=== PATIENT | male | born 1935 | race African-American/Black ===

== ENCOUNTER 2018-07-01 08:06 | Emergency (ER) | payer MEDICARE ==
[2018-07-01] MEDS ORDERED: Amlodipine 5 MG TAB ONE (08:56)
== END 2018-07-01 09:30 | disposition home or self-care (01) ==
LOC: MADERS 08:06
DX: I10 Essential (primary) hypertension (principal); Z76.0 Encounter for issue of repeat prescription; E11.9 Type 2 diabetes mellitus without complications; E78.5 Hyperlipidemia, unspecified
CPT/HCPCS: 99281

== ENCOUNTER 2018-08-24 09:44 | Emergency (ER) | payer MEDICARE ==
--- NOTE | 2018-08-24 10:38 | RAD ---
LEFT KNEE 4 VIEWS: HISTORY: Injury. FINDINGS: There is a left knee prosthesis. Components appear in adequate position and alignment. No loosening . No evidence of acute fracture. There is evidence of a joint effusion in the suprapatellar region. IMPRESSION: Left knee prosthesis. Evidence of joint effusion. No acute fracture identified. POS: [facility]
--- NOTE | 2018-08-24 11:03 | RAD ---
LEFT HAND 3 VIEWS: Date: 08/24/18 HISTORY: Injury. FINDINGS: There is a fracture involving the middle phalanx of the fourth digit. This fracture involves the prox imal and mid shaft with probable involvement of the articular surface at the PIP joint. Mild displace ment. There are mild degenerative changes at the MCP and IP joints. No other fracture identified. IMPRESSION: Fracture middle phalanx fourth finger. POS: [facility]
== END 2018-08-24 11:05 | disposition home or self-care (01) ==
LOC: MADERS 09:44
DX: S62.625A Displaced fracture of middle phalanx of left ring finger, initial encounter for closed fracture (principal); S43.401A Unspecified sprain of right shoulder joint, initial encounter; S80.02XA Contusion of left knee, initial encounter; E11.9 Type 2 diabetes mellitus without complications; I10 Essential (primary) hypertension; E78.5 Hyperlipidemia, unspecified; Z79.84 Long term (current) use of oral hypoglycemic drugs; Z79.899 Other long term (current) drug therapy; Y04.8XXA Assault by other bodily force, initial encounter

== ENCOUNTER 2018-08-31 20:51 | Emergency (ER) | payer MEDICARE | END 2018-08-31 22:53 | disposition left against medical advice (07) | LOC: MADERS 20:51 | DX: Z00.00 Encounter for general adult medical examination without abnormal findings (principal); E11.9 Type 2 diabetes mellitus without complications; E78.5 Hyperlipidemia, unspecified; I10 Essential (primary) hypertension; Z79.84 Long term (current) use of oral hypoglycemic drugs; Z79.899 Other long term (current) drug therapy | CPT/HCPCS: 99282 ==

== ENCOUNTER 2021-01-28 14:46 | Emergency (ER) | payer MEDICARE ==
[2021-01-28 15:20] LABS: Bacteria/HPF 3+ HPF (None Seen); Bilirubin Negative (Negative); Blood, Urine Trace (Negative); Clarity Slightly Cloudy (Clear); Glucose, Urine (Dipstick) Negative (Negative); Ketone, Urine Negative (Negative); Leukocyte Trace (Negative); Nitrite Positive (Negative); Protein, Urine (Dipstick) 100 mg/dL (Neg-Trace); RBC/HPF 0-3 HPF (0-3); Specific Gravity, Urine 1.025 (1.005-1.030); Squamous Epithelial 0-3 HPF (0-3); Urobilinogen 0.2 mg/dL (Less than 2); WBC/HPF Greater than 50 HPF (0-3); pH, Urine 5.5 (5.0-9.0)
[2021-01-28] MEDS ORDERED: Cephalexin 500 MG CAP ONE (15:41)
== END 2021-01-28 16:30 | disposition home or self-care (01) ==
LOC: MADERS 14:46
DX: N39.0 Urinary tract infection, site not specified (principal); R45.6 Violent behavior; K21.9 Gastro-esophageal reflux disease without esophagitis; E78.5 Hyperlipidemia, unspecified; M10.9 Gout, unspecified; E11.9 Type 2 diabetes mellitus without complications; F32.9 Major depressive disorder, single episode, unspecified; F41.9 Anxiety disorder, unspecified; Z79.899 Other long term (current) drug therapy
CPT/HCPCS: 81003; 81015; 87077; 87086; 87186; 99285

== ENCOUNTER 2021-02-24 14:49 | Outpatient (CLI) | payer MEDICARE ==
[2021-02-24 15:14] LABS: Bilirubin Negative (Negative); Blood, Urine Negative (Negative); Glucose, Urine (Dipstick) Negative (Negative); Ketone, Urine Negative (Negative); Leukocyte Small (Negative); Nitrite Negative (Negative); Protein, Urine (Dipstick) 30 mg/dL (Neg-Trace); Urobilinogen 0.2 mg/dL (Less than 2); pH, Urine 5.5 (5.0-9.0)
[2021-02-24 15:25] LABS: Bacteria/HPF 4+ HPF (None Seen); Clarity Hazy (Clear); RBC/HPF 0-3 HPF (0-3); Squamous Epithelial 0-3 HPF (0-3)
== END 2021-02-24 14:50 | disposition home or self-care (01) ==
LOC: MADLAB 14:49
DX: N40.0 Benign prostatic hyperplasia without lower urinary tract symptoms (principal); R41.82 Altered mental status, unspecified
CPT/HCPCS: 81001; 87077; 87086

== ENCOUNTER 2021-03-24 13:39 | Outpatient (CLI) | payer MEDICARE | END 2021-03-24 13:40 | disposition home or self-care (01) | LOC: MADLAB 13:39 | DX: L02.91 Cutaneous abscess, unspecified (principal) | CPT/HCPCS: 87070; 87077; 87186; 87205 ==

== ENCOUNTER 2021-05-26 09:28 | Emergency (ER) | payer MEDICARE ==
[2021-05-26] MEDS ORDERED: Acetaminophen 500 MG TAB ONE (10:11)
[2021-05-26 10:21] LABS: ALT (SGPT) 32 U/L (8-55); AST (SGOT) 20 U/L (5-34); Albumin 3.4 g/dL (3.4-4.8); Alkaline Phosphatase 114 U/L (40-110); Anion Gap 16 mmol/L (10-20); BUN (Urea Nitrogen) 24 mg/dL (8.4-25.7); Bilirubin, Total 1.3 mg/dL (0.2-1.2); Calc. Creatinine Clearance 0 mL/min (70-130); Calcium 9.4 mg/dL (7.8-10.44); Carbon Dioxide 25 mmol/L (23-31); Chloride 94 mmol/L (98-107); Globulin 3.7 g/dL (2.4-3.5); Glucose 180 mg/dL (83-110); Potassium 3.2 mmol/L (3.5-5.1); Protein, Total 7.1 g/dL (5.8-8.1); Sodium 132 mmol/L (136-145)
[2021-05-26 10:25] LABS: Band 5 % (5-11); Hemoglobin 10.3 g/dL (14.0-18.0); Hypochromia SLIGHT = 6-15 cells (100X) (0-5/hpf); Lymphocytes 4 % (21-51); MDiff Complete? YES; Mean Corpuscular HGB CONC 33.7 g/dL (32.0-36.0); Mean Corpuscular Hemoglobin 31.9 pg (27.0-31.0); Mean Corpuscular Volume 94.7 fL (78.0-98.0); Mean Platelet Volume 7.2 fL (7.4-10.4); Monocytes 3 % (0-10); Myelocyte 1 % (0-0); Neutrophil 86 % (42-75); Platelet Count 262 thou/uL (130-400); Platelet Morphology Comment Appears Adequate; RBC Distribution Width 14.4 % (11.5-14.5); Reactive Lymphocytes 1 % (0-10); Red Blood Cell (RBC) Count 3.22 mill/uL (4.70-6.10); White Blood Cell (WBC) Count 18.9 thou/uL (4.8-10.8)
[2021-05-26] MEDS ORDERED: Sodium Chloride 0.9% 100 ML ONE (10:25)
[2021-05-26] MEDS ORDERED: cefTRIAXone\\ROCEPHIN 2 GM VIAL ONE (10:25)
[2021-05-26] MEDS ORDERED: Sodium Chloride 0.9% 250 ML 500 ML ONE (11:14)
[2021-05-26] MEDS ORDERED: NS 0.9% w/ 20 MEQ KCL 1,000 ML ONE (12:11)
[2021-05-26 13:44] LABS: Bilirubin Negative (Negative); Blood, Urine Moderate (Negative); Clarity Slightly Cloudy (Clear); Glucose, Urine (Dipstick) Negative (Negative); Ketone, Urine Negative (Negative); Leukocyte Small (Negative); Nitrite Negative (Negative); Protein, Urine (Dipstick) 100 mg/dL (Neg-Trace); pH, Urine 5.5 (5.0-9.0)
[2021-05-26 13:47] LABS: Bacteria/HPF 3+ HPF (None Seen); Squamous Epithelial 0-3 HPF (0-3)
== END 2021-05-26 13:28 | disposition short-term general hospital (02) ==
LOC: MADERS 09:28
DX: A41.9 Sepsis, unspecified organism (principal); N39.0 Urinary tract infection, site not specified; I11.9 Hypertensive heart disease without heart failure; E78.5 Hyperlipidemia, unspecified; E78.00 Pure hypercholesterolemia, unspecified; K21.9 Gastro-esophageal reflux disease without esophagitis; M10.9 Gout, unspecified; F03.90 Unspecified dementia, unspecified severity, without behavioral disturbance, psychotic disturbance, mood disturbance, and anxiety; E11.9 Type 2 diabetes mellitus without complications; Z79.899 Other long term (current) drug therapy
CPT/HCPCS: 71045; 74176; 80053; 81003; 81015; 83605; 84484; 85025; 87040; 87077; 87086; 87149; 87186; 87804; 94760; 96365; 96366; 96367; 96368; J0696; J3370; J3480; J3490; J7050

== ENCOUNTER 2021-06-17 17:07 | Outpatient (CLI) | payer MEDICARE ==
[2021-06-17 17:23] LABS: Bilirubin Negative (Negative); Blood, Urine Negative (Negative); Clarity Clear (Clear); Glucose, Urine (Dipstick) Negative (Negative); Ketone, Urine Negative (Negative); Leukocyte Negative (Negative); Nitrite Negative (Negative); Protein, Urine (Dipstick) Negative (Neg-Trace); Specific Gravity, Urine 1.015 (1.005-1.030); Urobilinogen 0.2 mg/dL (Less than 2)
[2021-06-17 17:32] LABS: Bacteria/HPF Rare-Few HPF (None Seen); RBC/HPF None Seen HPF (0-3); WBC/HPF 0-3 HPF (0-3); Yeast-Budding 1+ HPF (None Seen)
== END 2021-06-17 17:08 | disposition home or self-care (01) ==
LOC: MADLAB 17:07
DX: R41.82 Altered mental status, unspecified (principal)
CPT/HCPCS: 81001; 87086

== ENCOUNTER 2022-03-18 16:37 | Outpatient (CLI) | payer MEDICARE ==
[2022-03-18 17:05] LABS: ALT (SGPT) Less than 7 U/L (8-55); AST (SGOT) 7 U/L (5-34); Albumin 3.5 g/dL (3.4-4.8); Alkaline Phosphatase 57 U/L (40-110); Anion Gap 13 mmol/L (10-20); BUN (Urea Nitrogen) 26 mg/dL (8.4-25.7); Bilirubin, Total 0.2 mg/dL (0.2-1.2); Calc. Creatinine Clearance 0 mL/min (70-130); Calcium 10.2 mg/dL (7.8-10.44); Carbon Dioxide 23 mmol/L (23-31); Chloride 109 mmol/L (98-107); Estimated GFR 54; Glucose 106 mg/dL (83-110); Protein, Total 6.5 g/dL (5.8-8.1); Sodium 141 mmol/L (136-145)
[2022-03-18 17:17] LABS: #Basophils 0.1 thou/uL (0.0-0.2); #Eosinphils 0.1 thou/uL (0.0-0.7); #Lymphocytes 1.8 thou/uL (1.20-3.40); #Monocytes 0.7 thou/uL (0.11-0.59); #Neutrophils 3.5 thou/uL (1.40-6.50); %Basophils 1.2 % (0.0-1.0); %Eosinophils 1.7 % (0.0-10.0); %Lymphocytes 29.5 % (21.0-51.0); %Monocytes 10.7 % (0.0-10.0); %Neutrophils 56.9 % (42.0-75.0); Hemoglobin 9.4 g/dL (14.0-18.0); Mean Corpuscular HGB CONC 33.9 g/dL (32.0-36.0); Mean Corpuscular Hemoglobin 33.1 pg (27.0-31.0); Mean Corpuscular Volume 97.7 fl (78.0-98.0); Platelet Count 277 10x3/uL (130-400); RBC Distribution Width 14.8 % (11.5-14.5); Red Blood Cell (RBC) Count 2.85 mill/uL (4.70-6.10); White Blood Cell (WBC) Count 6.1 10x3/uL (4.8-10.8)
[2022-03-18 23:13] LABS: Hemoglobin A1c 6.4 % (4.0-6.0)
== END 2022-03-18 16:38 | disposition home or self-care (01) ==
LOC: MADLAB 16:37
DX: E11.9 Type 2 diabetes mellitus without complications (principal)
CPT/HCPCS: 80053; 83036; 85025